=== PATIENT | male | born 1990 | race Caucasian/White ===

== ENCOUNTER 2018-02-08 23:43 | Emergency (ER) | payer SELFPAY ==
[2018-02-09] MEDS ORDERED: traMADol 50 MG TAB TH 2 TAB/BOTTLE PO ONE (00:30)
[2018-02-09] MEDS ORDERED: AMOX/CLAV 875 MG TAB PO ONE (00:30)
[2018-02-09] MEDS ORDERED: AMOX-559 PO (00:33)
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
[2018-02-09 00:47] VITALS: BP 158/106
[2018-02-09] MEDS ORDERED: ANTIHYPERTENSIVE (01:03)
== END 2018-02-09 00:50 | disposition home or self-care (01) ==
LOC: ER 23:51
DX: H92.02 Otalgia, left ear (principal); K08.89 Other specified disorders of teeth and supporting structures; I10 Essential (primary) hypertension
CPT/HCPCS: 99283; C9399